=== PATIENT | female | born 1985 | race Two or more races ===

== ENCOUNTER 2019-06-12 01:43 | Emergency (ER) | payer OTHER ==
[~2019-06-12] VITALS: Ht 154.9 cm; Wt 97.2 kg
[2019-06-12] MEDS ORDERED: ONDANSETRON 2MG/ML, 2ML ONE (02:05)
[2019-06-12] MEDS ORDERED: KETOROLAC 30 MG/1 ML ONE (02:05)
--- NOTE | 2019-06-12 02:15 | NUR ---
THIS IS A 33Y FEMALE THAT COMES IN FOR ABD PAIN W/ N/V SINCE 2199. PT DENIES HISTORY AND RECENT ILLNESS. PIV STARTED LABS DRAWN, PT MEDICATED PER MAR, PT TO US AT THIS TIME.
[2019-06-12] MEDS ORDERED: SODIUM CHLORIDE 0.9% 1,000ML IVBOLUS ONE (02:30)
[2019-06-12] MEDS ORDERED: SODIUM CHLORIDE FLUSH 10ML SYR IVF ONE (02:30)
[2019-06-12] MEDS ORDERED: ONDANSETRON 2MG/ML, 2ML IVPush ONE (02:30)
[2019-06-12] MEDS ORDERED: KETOROLAC 30 MG/1 ML IVPush ONE (02:30)
[2019-06-12 02:34] LABS: BASOPHILS # (AUTO) 0.04 x10^3/uL (0-0.1); BASOPHILS % (AUTO) 1 % (0-1); EOSINOPHILS # (AUTO) 0.17 x10^3/uL (0-0.4); EOSINOPHILS % (AUTO) 2 % (1-7); LYMPHOCYTES # (AUTO) 1.43 x10^3/uL (1-3.4); LYMPHOCYTES % (AUTO) 15 % (22-44); MD NO; MEAN CORPUSCULAR HEMOGLOBIN 27.8 pg (27.0-34.8); MEAN CORPUSCULAR HGB CONC 32.9 g/dL (32.4-35.8); MEAN CORPUSCULAR VOLUME 84.5 fL (80-100); MEAN PLATELET VOLUME 9.2 fL (7.4-10.4); MONOCYTES # (AUTO) 0.36 x10^3/uL (0.2-0.8); MONOCYTES % (AUTO) 4 % (2-9); NEUTROPHILS # (AUTO) 7.82 x10^3/uL (1.8-6.8); NEUTROPHILS % (AUTO) 80 % (42-75); PLATELET COUNT 232 x10^3/uL (130-400); RED BLOOD COUNT 4.86 x10^6/uL (3.82-5.3); RED CELL DISTRIBUTION WIDTH 13.8 % (9.6-15.2)
[2019-06-12 02:44] LABS: ALANINE AMINOTRANSFERASE 24 U/L (12-78); ALBUMIN 3.7 g/dL (3.4-5.0); ANION GAP 8 mmol/L (5-15); CALCIUM 8.5 mg/dL (8.5-10.1); CHLORIDE 109 mmol/L (98-107); CREATININE 0.71 mg/dL (0.55-1.02)
[2019-06-12 02:46] LABS: ALKALINE PHOSPHATASE 96 U/L (45-117); BILIRUBIN,TOTAL 0.9 mg/dL (0.2-1.0); TOTAL PROTEIN 7.5 g/dL (6.4-8.2)
--- NOTE | 2019-06-12 02:57 | NUR ---
PT UP TO RESTROOM FOR URINE SAMPLE
[2019-06-12 03:06] VITALS: BP 103/61
--- NOTE | 2019-06-12 03:06 | NUR ---
URINE WALKED TO LAB
[2019-06-12 03:13] LABS: MICROSCOPIC NOT IND
[2019-06-12 03:15] LABS: CULTURE INDICATED? NO
--- NOTE | 2019-06-12 03:23 | NUR ---
ALL RESULTS BACK CHART UP FOR RECHECK
--- NOTE | 2019-06-12 04:01 | NUR ---
Patient/Caregiver given discharge instructions and they have confirmed that they understand the instructions. Patient ambulatory with steady gait.
== END 2019-06-12 04:07 | disposition home or self-care (01) ==
LOC: ED 02:27
DX: R11.2 Nausea with vomiting, unspecified (principal); R10.11 Right upper quadrant pain
CPT/HCPCS: 36415; 76700; 80053; 81003; 83690; 84703; 85025; 93005; 96361; 96374; 96375; 99284; J1885; J2405; J7030